=== PATIENT | female | born 1975 | race Caucasian/White ===

== ENCOUNTER 2019-06-28 14:19 | Emergency (ER) | payer OTHER ==
[~2019-06-28] VITALS: Ht 162.6 cm; Wt 83.9 kg
[~2019-06-28 14:19] MED LIST: ACETAMINOPHEN-1 EAC1 PO; CYCLOBENZAPRINE5 MG PO; IBUPROFEN 800800 M1 PO; LATUDA60 MG PO; PROZAC20 MG PO; TRAZODONE HCL50 MG PO; VERAPAMIL ER240 M1 PO; ZOCOR20 MG PO
[2019-06-28] MEDS ORDERED: PROAIR HFA8.5 GM INH (14:42)
[2019-06-28] MEDS ORDERED: FLONASE 0.05%50 MCG NARES (14:43)
[2019-06-28] MEDS ORDERED: TIZANIDINE HCL2 M1 PO (14:43)
[2019-06-28] MEDS ORDERED: MELOXICAM15 MG PO (14:43)
[2019-06-28] MEDS ORDERED: ZOLOFT25 MG PO (14:43)
[2019-06-28] MEDS ORDERED: NEURONTIN300 MG PO (14:44)
[2019-06-28] MEDS ORDERED: ABILIFY15 MG PO (14:44)
[2019-06-28] MEDS ORDERED: MICROZIDE12.5 MG PO (14:45)
[2019-06-28] MEDS ORDERED: HYDROCHLOROTHIA25 M1 PO (14:52)
[2019-06-28 15:22] VITALS: BP 125/85
== END 2019-06-28 15:22 | disposition home or self-care (01) ==
LOC: M.ERS 14:19
DX: Z76.0 Encounter for issue of repeat prescription (principal); M54.2 Cervicalgia; G89.29 Other chronic pain; I10 Essential (primary) hypertension; E78.00 Pure hypercholesterolemia, unspecified; F31.9 Bipolar disorder, unspecified; F17.210 Nicotine dependence, cigarettes, uncomplicated